=== PATIENT | male | born 1965 | race Caucasian/White ===

== ENCOUNTER 2017-04-02 11:05 | Emergency (ER) | payer OTHER ==
[2017-04-02] MEDS ORDERED: LORazepam 1 MG TAB PO ONE (12:31)
--- NOTE | 2017-04-02 12:34 | EDPHY ---
H & P Stated Complaint: Concussion 2 days ago, detoxing, feels "bad". Time Seen by Provider: 04/02/17 12:23 HPI/ROS: CHIEF COMPLAINT: Headache, midline C-spine pain HISTORY OF PRESENT ILLNESS: 51-year-old male, self-described alcoholic, lives in [place] states that he has been sober for 4 months, started drinking again 5 days ago, sustained a head injury, seen local hospital with negative imaging. He flew in to [place] this morning to see his sister, went to her house and came directly to the hospital as he is complaining of progressive bifrontal headache and new midline C-spine pain. Denies peripheral paresthesia, weakness, numbness. He did have drinks of alcohol on the plane ride this morning. He is complaining as well of withdrawal like symptoms, nausea, anxiety. No seizure. No hallucination. REVIEW OF SYSTEMS: A ten point review of systems was performed and is negative with the exception of the items mentioned in the HPI PAST MEDICAL/SURGICAL HISTORY: Self-described alcoholic SOCIAL HISTORY: Last drink of alcohol few hours ago in airplane PHYSICAL EXAM 1) GENERAL: Well-developed, well-nourished, alert and oriented. Appears uncomfortable, anxious Answering questions appropriately. 2) HEAD: Normocephalic, left frontal abrasion 3) HEENT: Pupils equal, round, reactive to light bilaterally. Negative Horners. Nasopharynx, oropharynx, clear. No deformity or angulation of nose. No septal hematoma. No rhinorrhea. No oral trauma. Ears bilaterally with normal tympanic membranes. No hemotympanum. No fluid or blood in the external auditory canal. No raccoon eyes. No Felipe sign. Teeth are normally aligned with no gross malocclusion, TMJ bilaterally nontender, facial bones nontender including the zygomatic arch, maxilla mandible. 4) NECK: No cervical collar is on. He is tender to palpation midline C-spine approximately C4. no stepoff, no effusion. cervical collar placed at that time 5) LUNGS: Clear to auscultation bilaterally, no wheezes, no rhonchi, no retractions. No obvious signs of trauma. No chest wall pain. No flaring, no grunting. Moving symmetrically. No crepitus. 6) HEART: Regular rate and rhythm, 7) ABDOMEN: No guarding, no rebound, no focal tenderness, no peritoneal signs, no signs of trauma, no ecchymosis 8) MUSCULOSKELETAL: Moving all extremities, no focal areas of tenderness, no obvious trauma. 9) BACK: No midline vertebral tenderness, no fluctuance, no step-off, no obvious trauma, no visual or palpable abnormality. 10) SKIN: [ No laceration. DIFFERENTIAL DIAGNOSIS: [ Not necessarily in any particular order, my differential diagnosis includes, but is not limited to, concussion, skull fracture, intraparenchymal contusion, subarachnoid, subdural and epidural hematoma, cervical fracture, cervical subluxation. The patient understands that this diagnosis is provisional and can never be 100% accurate. - Personal History Current Tetanus Diphtheria and Acellular Pertussis (TDAP): Yes - Medical/Surgical History Hx Asthma: No Hx Chronic Respiratory Disease: No Hx Diabetes: No Hx Cardiac Disease: No Hx Renal Disease: No Hx Cirrhosis: No Hx Alcoholism: Yes Hx HIV/AIDS: No Hx Splenectomy or Spleen Trauma: No Other PMH: ETOH. Depression. - Social History Smoking Status: Never smoked Constitutional: Initial Vital Signs Temperature (C) 36.4 C 04/02/17 11:07 Heart Rate 106 H 04/02/17 11:07 Respiratory Rate 16 04/02/17 11:07 Blood Pressure 142/89 H 04/02/17 11:07 O2 Sat (%) 95 04/02/17 11:07 O2 Delivery Mode Room Air Allergies/Adverse Reactions: No Known Allergies Allergy (Unverified 04/02/17 11:11) Home Medications: Medication Instructions Recorded LORazepam [Ativan 1 mg (RX)] 1 mg PO Q6 PRN #7 tab 04/02/17 Lexapro 04/02/17 Medical Decision Making - Diagnostics Imaging Results: Imaging Impressions Cervical Spine CT 04/02/17 12:31 Impression: 1. No acute fracture or soft tissue swelling. 2. Moderate severe bilateral neural foraminal stenosis at C5-C6 due to uncovertebral and facet spurs. 3. If the patient has persistent pain or neurologic deficits, consider cervical spine MRI. Findings discussed with Emergency Department physician's office manager executive assistant, Thais Rae, at 1326 hours 04/02/2017. Head CT 04/02/17 12:31 Impression: 1. No acute intracranial hemorrhage or fracture. 2. Minimal left frontal scalp swelling. Findings discussed with Emergency Department physician's office manager executive assistant, Thais Rae, at 1326 hours 04/02/2017. Images reviewed by myself ED Course/Re-evaluation: 12:30 p.m.: CT head and C-spine this patient ordered for the following indication, progressive headache after head injury, midline C-spine pain. He will also be given oral benzodiazepine for acute alcohol withdrawal. 1330 pm: Patient's called the ER requesting to speak with me. Patient provided written consent to release "all my medical information" to his . Patient's information, name Selina Ortez phone number [phone]. 1:50 p.m.: I spoke with the patient, the family caseworker will speak with the patient as well. Informed that he will more than likely fly back to [place] either this evening or tomorrow morning and re-enter the rehabilitation program at [facility]. 2:23 p.m.: Re-evaluation, has received IV benzodiazepine. He is feeling improvement, headache feeling better, tremors resolved. The family caseworker has spoke with the patient, [facility], over offered to send him to an inpatient facility however he states that he declines this at this time as he will more than likely take a flight back to [place] this evening or tomorrow morning and re-enter his rehabilitation facility in [place]. I am giving him a few Ativan tablets as I do not want ham to stop drinking cold turkey without benzodiazepine on board. He will be staying with his sister this evening in [place].. To return to ER should she develop withdrawal like symptoms, definitely if he develops seizures or hallucination. He feels comfortable with this plan. All questions and concerns addressed by myself - Data Points Medications Given: Discontinued Medications Sodium Chloride (Ns) 1,000 mls @ 0 mls/hr IV ONCE ONE; Wide Open PRN Reason: Protocol Stop: 04/02/17 12:42 Last Admin: 04/02/17 12:44 Dose: 1,000 mls Lorazepam (Ativan) 2 mg PO EDNOW ONE Stop: 04/02/17 12:32 Last Admin: 04/02/17 12:41 Dose: Not Given Lorazepam (Ativan Injection) 2 mg IVP ONCE ONE Stop: 04/02/17 12:42 Last Admin: 04/02/17 12:45 Dose: 2 mg Departure - Departure Disposition: Home, Routine, Self-Care Clinical Impression: Head injury Qualifiers: Encounter type: initial encounter Qualified Code(s): S09.90XA - Unspecified injury of head, initial encounter Alcohol withdrawal Qualifiers: Complication of substance-induced condition: uncomplicated Qualified Code(s): F10.230 - Alcohol dependence with withdrawal, uncomplicated Condition: Good Instructions: Lorazepam (By mouth), Head Injury (ED), Abuse of Alcohol (ED) Additional Instructions: Return to emergency department if you develop seizure, hallucination, or any other symptoms that concern you. Referrals: JANELL ZAZUETA [Other] - As per Instructions Prescriptions: LORazepam [Ativan 1 mg (RX)] 1 mg PO Q6 PRN #7 tab PRN Reason: Anxiety
[2017-04-02] MEDS ORDERED: NS 1,000 ML IV ONE (12:41)
[2017-04-02] MEDS ORDERED: LORazepam 2 MG/ML INJ IVP ONE ×2 (12:41→13:40)
[2017-04-02 14:56] VITALS: BP 131/80; PULSE 87; RESP 18; TEMP 98.4; O2SAT 93
--- NOTE | 2017-04-02 15:18 | ASMTCMCOM ---
CM Note CM Note Notes: Case Management: Met with patient who presents to the ER with history of ETOH, looking for local resources for rehab. Patient lives in [place] and recently arrived in [place] to visit his sister after "relapsing" at home. Patient states that he recently attended OP rehab at [facility] ([facility]) in [place]. He was doing well until a few days ago when he had a drinking "Binge", argued with his , and decided to come out to [place]. Patient is undecided as to whether he wants to purse IP treatment in [place] or return to [place] for this. He appears to insightful about his addiction, wants to change his behavior, and knows he needs to continue/return to a recovery environment. Patient tells me that he is not concerned about financial resources and that his "company" will support him-financially and otherwise-in his attempts to do this. For the most part I listened to patient as he processed his situation and provided him with contact information for the [facility] program at ([place]), as well as [facility] program in [place]. Patient states that he is leaning toward returning to [place] for rehab where he has a strong support network. Patient denies concerns re "withdrawal" from ETOH at this time but tells me he will likely call [facility] for an intake conversation prior to making any travel plans, etc. I have encouraged him to consider this option as well so that he can be in a supportive and safe environment while he makes further decisions. Date Signed: 04/02/2017 03:17 PM Electronically Signed By:Shannon Mckay RN
== END 2017-04-02 14:48 | disposition home or self-care (01) ==
DX: S09.90XA Unspecified injury of head, initial encounter (principal); X58.XXXA Exposure to other specified factors, initial encounter; F10.230 Alcohol dependence with withdrawal, uncomplicated; E86.9 Volume depletion, unspecified
CPT/HCPCS: 96374; J2060